=== PATIENT | male | born 1990 | race Caucasian/White ===

== ENCOUNTER 2021-08-30 08:17 | Emergency (ER) | payer OTHER, SELFPAY ==
--- NOTE | 2021-08-30 08:22 | ED.ABDPAIN ---
HPI - Abdominal Pain General Chief Complaint: Nausea/Vomiting/Diarrhea Stated Complaint: Abdominal Pain Time Seen by Provider: 08/30/21 08:53 Source: patient and RN notes reviewed Mode of arrival: ambulatory Limitations: no limitations History of Present Illness HPI narrative: 30-year-old male presents with concern for nausea, vomiting, diarrhea, gas. He reports symptoms started on Monday night with several episodes of vomiting overnight. He reports no vomiting or diarrhea on Monday, however he had nausea and did not feel well. Reports Monday he started having diarrhea and acid reflux. He reports frequent belching. He reports stomach bloating. He denies current abdominal pain. Denies fever, body aches, chills, sweats MD elicited complaint: other (Indigestion, diarrhea) Related Data Home Medications Medication Instructions Recorded Confirmed alprazolam [Xanax] 0.5 mg PO DAILY 08/30/21 08/30/21 Allergies Allergy/AdvReac Type Severity Reaction Status Date / Time No Known Allergies Allergy Verified 08/30/21 08:51 Review of Systems Review of Systems: CONSTITUTIONAL: Denies malaise, chills, sweats, or fever. ENT: Denies rhinorrhea, congestion, sinus pain, otalgia or sore throat. CARDIOVASCULAR: Denies chest pain, palpitations, or edema. RESPIRATORY: Denies cough or dyspnea. GASTROINTESTINAL: Denies abdominal pain, diarrhea. Reports abdominal bloating, gas, belching nausea, diarrhea, bloody, or mucous stools. GENITOURINARY: Denies dysuria or hematuria. MUSCULOSKELETAL: Denies myalgia. NEUROLOGIC: Denies headache. All systems reviewed & are unremarkable except as noted in HPI and below PMFSH Comments At time of signature, agree with nursing past medical, surgical, social and family history. There is no relevant family history pertinent to the presenting complaint Exam Narrative: GENERAL: Well-appearing, well-nourished, and in no acute distress. HEAD: Normocephalic, atraumatic. EYES: PERRLA, conjunctivae clear, and EOMI. ENT: Nares clear, turbinates pink, no rhinorrhea or epistaxis. Mucous membranes moist. Oropharynx without edema, erythema, or lesions. Tonsils not enlarged and without exudate. NECK: Supple. No lymphadenopathy CHEST: Speaks in full sentences. No respiratory distress. HEART: Regular rate and rhythm. ABDOMEN: Soft, flat, nondistended. No guarding, rebound tenderness, or rigid. No pulsatilla masses. Bowel sounds present in all four quadrants. No organomegaly. Negative Ortega?s sign. No periumbilical tenderness. No hernia noted. Appendectomy scar noted SKIN: Warm, dry, no rash. NEURO: Alert and oriented x3. PSYCH: Normal mood and affect Course Course Emergency Course: Patient is aware of diagnosis, understands and agrees to treatment plan. Anticipatory guidance given. Patient agrees to follow-up as directed and is aware of reasons to seek care at the emergency department. Portions of this record may have been created with voice recognition software Level of Care: Express Care Visit Vital Signs Vital signs: Reviewed. MDM - Abdominal Pain MDM Narrative Medical decision making narrative: No evidence of pancreatitis, AAA, cholecystitis, choledocholithiasis, cholangitis, mesenteric ischemia, small bowel obstruction, diverticulitis, colitis, appendicitis, or pelvic etiology such as testicular torsion. Patient has no history of peptic ulcer, H. pylori, chronic aspirin NSAID or corticosteroid use, chronic alcohol use, no history of inflammatory bowel disease, no history of active abdominal infection or malignancy. Patient has no history of hernia or intra-abdominal surgeries, patient denies absence of flatus, constipation, melena, hematemesis. Patient denies post-prandial pain. No pain-out of proportion. Exam findings show no acute concerns or changes; patient is non-toxic appearing and is in no distress. Patient is appropriate for outpatient treatment and follow-up. Differential Diagnosis Differential diag
[2021-08-30 08:44] VITALS: BP 146/80; PULSE 76; RESP 18; TEMP 36.7; O2SAT 98
== END 2021-08-30 09:12 | disposition home or self-care (01) ==
PROVIDERS: Emergency Provider Nurse Practitioner
DX: K30 Functional dyspepsia (principal); R19.7 Diarrhea, unspecified; F41.9 Anxiety disorder, unspecified
CPT/HCPCS: 99213; G0463

== ENCOUNTER 2022-01-07 08:18 | Emergency (ER) | payer OTHER, SELFPAY ==
[2022-01-07 08:29] VITALS: BP 130/78; PULSE 73; RESP 20; TEMP 36.4; O2SAT 100
--- NOTE | 2022-01-07 08:36 | ED.URI ---
HPI - URI/Sore Throat General Chief Complaint: Upper Respiratory Infection Stated Complaint: congestion matted eye Time Seen by Provider: 01/07/22 08:36 Source: patient, RN notes reviewed and old records reviewed Mode of arrival: ambulatory Limitations: no limitations History of Present Illness HPI Narrative: 31 year old male who presents to [facility] care with complaints of left eye matting for the past 2 days with one week history of cough,headache,sore throat,sinus congestion with drainage of green yellowish drainage. Patient reports that he has taken some DayQuil for his symptoms and also some cough drops, has also taken Claritin D a couple of times. Patient reports that his vision is a little foggy from his left eye with some greenish drainage and morning matting.Patient reports that he took a home COVID test which was negative. MD elicited complaint: cough, sore throat, nasal congestion and other (eye drainage left eye) Onset (ago): week(s) Description of mucous: yellow and green Able to tolerate fluids by mouth: Yes Associated symptoms: headache, rhinorrhea, nasal congestion, sore throat, cough and other (eye drainage left eye) Treatments prior to arrival: cold medicine and other (cough drops) Related Data Home Medications Medication Instructions Recorded Confirmed alprazolam 0.5 mg tablet (Xanax) 0.5 mg PO DAILY 08/30/21 01/07/22 Allergies Allergy/AdvReac Type Severity Reaction Status Date / Time No Known Allergies Allergy Verified 01/07/22 08:50 Review of Systems Review of Systems: CONSTITUTIONAL: Denies known fever, chills, or sweats. EYES: Positive for visual changes foggy left eye, some redness, greenish discharge. ENT: Positive rhinorrhea, congestion, sore throat, no otalgia. CARDIOVASCULAR: Denies chest pain, palpitations, or edema. RESPIRATORY: Positive for cough denies dyspnea. GASTROINTESTINAL: Denies abdominal pain, nausea, vomiting, or diarrhea. GENITOURINARY: Denies dysuria or hematuria. SKIN: Denies rash or itching. MUSCULOSKELETAL: Denies back pain, joint pain, or myalgia. NEUROLOGIC: Positive for frontal headache,no numbness, or weakness. PSYCHIATRIC: Positive history of anxiety or depression. All systems reviewed & are unremarkable except as noted in HPI and below PMFSH Past Medical History Medical History (Updated 01/08/22 @ 10:05 by Kati Landeros NP) Anxiety Surgical History Surgical History (Updated 01/07/22 @ 08:47 by Kati Landeros NP) History of appendectomy Social History Social History (Updated 01/07/22 @ 08:47 by Kati Landeros NP) Smoking status: Current every day smoker Tobacco type: cigarettes Alcohol intake: never Substance use type: marijuana Living arrangements: with family Comments At time of signature, agree with nursing past medical, surgical, social and family history. There is no relevant family history pertinent to the presenting complaint Exam Narrative: GENERAL: Well-appearing, well-nourished, and in no acute distress. HEAD: Normocephalic, atraumatic. EYES: PERRLA and EOMI. left eye conjunctiva red with some greenish drainage and morning matting reported ENT: Nares red with yellow rhinorrhea no epistaxis. Mucous membranes moist.TM's normal with dull light reflex, throat red with no exudates or lesions, mild tonsil swelling with post nasal drainage noted. NECK: Supple. No lymphadenopathy CHEST: Clear to auscultation. No respiratory distress.SAO2 100% on room air HEART: Regular rate and rhythm. No murmur heard. Normal peripheral pulses. ABDOMEN: Soft, nontender, nondistended, normal active bowel sounds. EXTREMITIES: Normal range of motion. No edema. SKIN: Warm, dry, no rash. NEURO: No focal deficits. Alert and oriented x3. Course Course Level of Care: Express Care Visit Vital Signs Vital signs: Vital Signs Temperature 36.4 C 01/07/22 08:29 Pulse Rate 73 01/07/22 08:29 Respiratory Rate 20 01/07/22 08:29 Blood Pressu
== END 2022-01-07 09:05 | disposition home or self-care (01) ==
PROVIDERS: Emergency Provider Registered Nurse
DX: H10.32 Unspecified acute conjunctivitis, left eye (principal); J32.9 Chronic sinusitis, unspecified; F17.210 Nicotine dependence, cigarettes, uncomplicated; F41.9 Anxiety disorder, unspecified
CPT/HCPCS: 99213; G0463

== ENCOUNTER 2023-06-22 08:01 | Emergency (ER) | payer OTHER, SELFPAY ==
[2023-06-22 08:10] VITALS: BP 148/74; PULSE 82; RESP 18; TEMP 36.3; O2SAT 100
--- NOTE | 2023-06-22 08:11 | ED.URI ---
HPI - URI/Sore Throat General Chief Complaint: Upper Respiratory Infection Stated Complaint: Sinus Problem Time Seen by Provider: 06/22/23 08:15 Source: patient, RN notes reviewed and old records reviewed Mode of arrival: ambulatory Limitations: no limitations History of Present Illness HPI Narrative: 32-year-old male who presents to [facility] with complaints of sinus congestion drainage, sinus pain and intermittent headaches for the past 3 months. Patient reports symptoms started around April 07 he has been taking [id number] Claritin D using Mucinex nasal spray taking ibuprofen with no resolution of symptoms. Patient states symptoms seem to get better then became worse again. Patient denies any known fever chills or body aches denies any shortness of breath or any wheezing. Patient states he does have cough at times especially in the early a.m. patient reports he did take all COVID test 2 weeks ago that was negative. MD elicited complaint: cough, rhinorrhea, nasal congestion and sinus pain Onset (ago): month(s) (3) Description of mucous: yellow Able to tolerate fluids by mouth: Yes Treatments prior to arrival: other (Mucinex nasal spray, Claritin D, Ibuprofen) Related Data Allergies Allergy/AdvReac Type Severity Reaction Status Date / Time No Known Allergies Allergy Verified 06/22/23 08:10 Review of Systems Review of Systems: CONSTITUTIONAL: Denies malaise, chills, sweats, or fever. EYES: Denies visual changes, redness, or discharge. ENT: Reports rhinorrhea, congestion, sinus pain, no otalgia and no sore throat. CARDIOVASCULAR: Denies chest pain, palpitations, or edema. RESPIRATORY: Reports cough.? Denies dyspnea. GASTROINTESTINAL: Denies abdominal pain, nausea, vomiting, diarrhea SKIN: Denies rash or itching. MUSCULOSKELETAL: Denies myalgia. NEUROLOGIC: Reports headache. All systems reviewed & are unremarkable except as noted in HPI and below PMFSH Past Medical History Medical History Anxiety Surgical History Surgical History (Updated 01/07/22 @ 08:47 by Kati Ladneros NP) History of appendectomy Social History Social History (Updated 06/22/23 @ 08:30 by Kati Landeros NP) Smoking status: Never smoker Alcohol intake: never Substance use type: does not use Living arrangements: with family Comments At time of signature, agree with nursing past medical, surgical, social and family history. There is no relevant family history pertinent to the presenting complaint Exam Narrative: GENERAL: Well-appearing, well-nourished, and in no acute distress. HEAD: Normocephalic EYES: PERRLA, conjunctivae clear ENT: Nares clear, turbinates edematous and erythematous, yellow discharge, sinus pressure and pain. Mucous membranes moist. TM pearly roy with dull light reflex bilaterally; no tragal tenderness. Oropharynx erythematous without lesions. Tonsils not enlarged and without exudate, no drooling, no hoarseness, no trismus, uvula midline. Postnasal drainage NECK: Supple. No lymphadenopathy CHEST: Clear to auscultation, breath sounds equal. No wheezing, rhonchi, rales, or stridor. No respiratory distress, speaks in full sentences. No cough noted SaO2 100% room air HEART: Regular rate and rhythm. No murmur heard. SKIN: Warm, dry, no rash. NEURO: Alert and oriented x3. PSYCH: Normal mood and affect Course Course Emergency Course: Patient is aware of diagnosis, understands and agrees to treatment plan.? Anticipatory guidance given.? Patient agrees to follow-up as directed and is aware of reasons to seek care at the emergency department. Portions of this record may have been created with voice recognition software Level of Care: Express Care Visit Vital Signs Vital signs: Vital Signs Temperature 36.3 C L 06/22/23 08:10 Pulse Rate 82 06/22/23 08:10 Respiratory Rate 18 06/22/23 08:10
[2023-06-22 08:13] VITALS: BP 148/74; PULSE 82; RESP 18; TEMP 36.3; O2SAT 100
== END 2023-06-22 08:33 | disposition home or self-care (01) ==
PROVIDERS: Emergency Provider Registered Nurse
DX: J32.9 Chronic sinusitis, unspecified (principal); B96.89 Other specified bacterial agents as the cause of diseases classified elsewhere; F41.9 Anxiety disorder, unspecified
CPT/HCPCS: 99213; G0463

== ENCOUNTER 2024-06-19 08:46 | Emergency (ER) | payer OTHER, SELFPAY ==
[2024-06-19 08:53] VITALS: BP 136/71; PULSE 93; RESP 16; TEMP 36.6; O2SAT 100
--- NOTE | 2024-06-19 09:39 | ED.GENADULT ---
HPI - General Adult General Chief complaint: Upper Respiratory Infection Stated complaint: Sinus Pain Source: patient Mode of arrival: ambulatory Limitations: no limitations History of Present Illness HPI narrative: Pt presents for evaluation of sinus symptoms for the past four days. Symptoms include sinus congestion, thick green drainage from the nares, chills, a mild cough and dental pain. He has had similar symptoms in the past with a sinus infection. In the past, antibiotics were effective. No fever, sore throat, otalgia or SOB. His recently had respiratory symptoms. He does not smoke. He has tried nasal spray for his symptoms. Related Data Allergies Allergy/AdvReac Type Severity Reaction Status Date / Time No Known Allergies Allergy Verified 06/19/24 09:18 Review of Systems Review of Systems: CONSTITUTIONAL: Reports chills. Denies fever EYES: Denies visual changes, redness, or discharge. ENT: Reports sinus congestion, thick green drainage from the nares and dental pain. Denies sore throat or otalgia CARDIOVASCULAR: Denies chest pain, palpitations, or edema. RESPIRATORY: Reports cough. Denies SOB GASTROINTESTINAL: Denies abdominal pain, nausea, vomiting, or diarrhea. GENITOURINARY: Denies dysuria or hematuria. SKIN: Denies rash or itching. MUSCULOSKELETAL: Denies back pain, joint pain, or myalgia. NEUROLOGIC: Denies headache, numbness, dizziness, or weakness. PSYCHIATRIC: Denies anxiety or depression. PMFSH Past Medical History Medical History Anxiety Surgical History Surgical History History of appendectomy Family History Family History Mother Family history non-contributory Social History Social History (System 04/11/24 @ 09:11 by Yeimi Vera) Smoking status: Never smoker Second hand tobacco smoke exposure: Yes Alcohol intake: never Substance use type: does not use Living arrangements: with family Exam Narrative: GENERAL: Well-appearing, well-nourished, and in no acute distress. HEAD: Normocephalic, atraumatic. EYES: PERRLA and EOMI. ENT:There is thick yellow-green drainage in the nares. There is bilaterally maxillary sinus tenderness. Mucous membranes moist. Oropharynx without tonsillar hypertrophy exudate or other lesions. Bilateral TMs pearly roy nonbulging NECK: Supple. No adenopathy or masses. No carotid bruits or JVD CHEST: Clear to auscultation. No respiratory distress. No wheezes rales or rhonchi HEART: Regular rate and rhythm. No murmur heard. Normal peripheral pulses. ABDOMEN: Soft, nontender, nondistended, normal active bowel sounds. EXTREMITIES: Normal range of motion. No edema. SKIN: Warm, dry, no rash. NEURO: No focal deficits. Alert and oriented x3. PSYCH: Normal mood and affect. Course Course Emergency Course: This is a 33 yr old male who presented for evaluation of sinus symptoms. He meets criteria for bacterial sinusitis based upon presence of mucopurulent discharge. Will dc with augmentin. Increase fluids. Follow up with primary provider. Go to the ER for worsening symptoms. Pt in agreement with plan of care. Level of Care: Express Care Visit Vital Signs Vital signs: Vital Signs Temperature 36.6 C 06/19/24 08:53 Pulse Rate 93 06/19/24 08:53 Respiratory Rate 16 06/19/24 08:53 Blood Pressure 136/71 06/19/24 08:53 Pulse Oximetry 100 06/19/24 08:53 Oxygen Delivery Room Air 06/19/24 08:53 Temperature 36.6 C 06/19/24 08:53 Pulse Rate 93 06/19/24 08:53 Respiratory Rate 16 06/19/24 08:53 Blood Pressure 136/71 06/19/24 08:53 Pulse Oximetry 100 06/19/24 08:53 Oxygen Delivery Room Air 06/19/24 08:53 Medical Decision Making Vital Signs Vital Signs: Vital Signs Temperature 36.6 C 06/19/24 08:53 Pulse Rate 93 06/19/24 08:53 Respiratory Rate 16 06/19/24 08:53 Blood Pressure 136/71 06/19/24 08:53 Pulse Oximetry 100 06/19/24 08:53 Oxygen Delivery Room Air 06/19/24 08:53 Temperature 36.6 C 06/19/24 08:53 Pulse Rate 93 06/19/24 08:53 Respiratory Rate 16 06/19/24 08:53 Blood Pressure 136/71 06/19/24 08:53 Pulse Oximetry 100 06/19/24 08:53 Oxygen Delivery Room Air 06/19/24 08:53 Discharge Plan Discharge Clinical Impression: Acute bacterial sinusitis Patient Disposition: Home, Self-Care Condition: Stable Instructions: Antibiotic Form, Sinusitis (ED) Patient Language: Greenlandic Prescriptions: New amoxicillin-pot clavulanate 875-125 mg tablet 1 tablet PO Q12H Qty: 20 0RF Follow-up/Referrals: Corinne Gomez DO [Physician] - Time of Disposition: 09:36
--- OUTSIDE RECORDS SUMMARY | 2024-06-20 22:03 | XMS_ITS | Continuity of Care Document ---
Author Organization [facility] Address [address] [place] [address] Phone Care Team Providers Care Competency Evaluated Nurse Aide Name Role Phone Isreal Alvarado MD Unavailable Unavailable Allergies, Adverse Reactions, Alerts Substance Reaction Status Criticality No Known Drug Allergies Active No I nformation Medications Medication Instructions Dosage Effective Dates (start - stop) Status Comments amoxicillin 500 mg capsule take 1 capsule by oral route 3 times every day for 10 days - Active clindamycin HCl 150 mg capsule take 1 capsule by oral route every 8 hours 150 MG - No Longer Active CYCLOBENZAPR 10MG TAB TAKE ONE TABLET BY MOUTH ONCE DAILY AT BEDTIME 10 MG - No Longer Active Advance Directives Directive Yes / No Effective Date File Name No Information Encounters Encounter Description Practice Location Reason(s) For Visit Diagnoses Date Provider Providers Copied on Encounter [facility], [address], [place], [place], [address], tel:[phone] [facility] No Information 9 Christiano Bach. [address] [place] [address], [address], [place], [place], [id number] , [place]. tel: [phone] [facility], [address], [place], [place], [address], tel:[phone] [facility] No Information 8 Christiano Bach. [address] [place] [address], [address], [place], [place], [address] , . tel: [phone] [facility], [address], [place], [place], [address], tel:[phone] [facility] No Information Christiano Bach. [address] [place] [address], [address], [place], [place], [address] , . tel: [phone] [facility], [address], [place], [place], [address], tel:[phone] [facility] Neck pain 7 Christiano Bach. [address] [place] [address], [address], [place], [place], [address] , . tel: [phone] Referring Provider: Isreal Alvaraod, [address] [place] [address] [address], [place], [address] . tel:[phone] [facility], [address], [place], [place], [address], tel:[phone] [facility] AnxietyTrapezius muscle strain, unspecified laterality, subsequent encounter 6 Zachary Hu. [address] [place] [address], [address], [place], [place], [address] . tel: [phone] Referring Provider: Isreal Alvarado, [address] [place] [address] [address], [place], [address] . tel:[phone] [facility], [address], [place], [place], [address], tel:[phone] [facility] Routine general medical examination at a health care facilityRoutine general medical examination at a health care facility 1 Christiano Bach. [address] [place] [address], [address], [place], [place], [address] , . tel:[phone] Referring Provider: Isreal Alvarado [address] [place] [address] [address], [place], [address] . tel:[phone] Family History Family Member Type Diagnosis Age At Onset Problem (finding) Family history of depre ssion Problem (finding) Family history of Diabe surya mellitus Payers Payer name Insurance type Covered green party ID Kalyn SHAHID (s) OPEN ACCESS CI [id number] Social History Type Description Quantity Date Captured Comments Alcohol Use Details Unknown Caffeine Use Details Unknown Tobacco Use Status No Information Smoking Status No Information Sex Male Chief Complaint And Reason For Visit No Information Reason For Referral Reason For Referral No Information History Of Present Illness Encounter Date Complaint History Of Prese nt Illness No Information Functional Status Date Functional Assessmen t No Information Instructions Date Instruction Additional Infor mation No Information Assessments Type Assessment Date No Information Patient Care Teams Name Effective Dates (start - stop) Status Members No Information
--- OUTSIDE RECORDS SUMMARY | 2024-06-20 22:03 | XMS_ITS | Continuity of Care Document ---
Author Organization [facility] Address [address] [place] [address] [address] [place] [address] Phone Care Team Providers Care Histopathology Technician Name Role Phone Amando HERNANDEZ MD, Kamron Unavailable Unavailab le Medications Medication Instructions Dosage Effective Dates (start - stop) Status Comments HYDROCODONE-ACETA MINOPHEN (unknown strength) take 1 capsule by oral route every 6 hours as needed Not Available - Active FLEXERIL (unknown strength) take 1 tablet by oral route 3 times every day Not Available - Active Polytrim 0.1 %-10,000 unit/mL Eye Drops instill 1 drop by ophthalmic route every 6 hours into affected eye(s) - No Longer Active Procedures Procedure Date No Charge Glasses Check Office/outpatient Visit, Est No Charge Glasses Check Office/outpatient Visit, Est Office/outpatient Visit, New Advance Directives Directive Yes / No Effective Date File Name Resuscitation Not Answered N/A N/A Life Support Not Answered N/A N/A Intubation Not Answered N/A N/A Antibiotics Not Answered N/A N/A IV Fluid Support Not Answered N/A N/A Tube Feed Not Answered N/A N/A Other Directive N/A N/A WARNING:The information contained in this section is historical and is provided for information only and does not constitute a legal document or any assurance that the information is still accurate. Please verify the information with the flores of the legal document before using it for clinical purposes. Encounters Encounter Description Practice Location Reason(s) For Visit Diagnoses Date Provider Providers Copied on Encounter [facility], [address] [place] [address] [address], [place], [place], [id number], [place] tel:[phone] SEC Jamison JAMES Professional 1 month f/u Corneal Ulcer (chief complaint) CENTRAL CORNEAL ULCER Nov- 5-201 3 Amando Lundy. [address], [address], [place], [address], [place]. tel:[phone] Office/outpa tient Visit, [facility] [place], [place], [id number] [place] [address] [address], [place], [place], [id number], [place] tel:[phone] SEC Jamison JAMES Professional a comprehensive exam (chief complaint) CENTRAL CORNEAL ULCERCENTRAL CORNEAL ULCER Oct-1 8-201 3 Amando Lundy. [address], [address], [place], [address], [place]. tel:[phone] [facility], [address] [place] [address] [address], [place], [place], [id number], [place] [phone] SEC Jamison JAMES Professional f/up on corneal ulcer (chief complaint) PSYCHOPHYSIC VISUAL DISTCENTRAL CORNEAL ULCER Oct-1 0-201 3 [facility] [address] [facility], [facility] [place], [id number], [place]. tel:[phone] Office/outpa tient Visit, [facility] [place], [place], [address] [place] [address] [address], [place], [place], [id number], [place] tel:[phone] SEC Jamison JAMES Professional a comprehensive exam (chief complaint) CENTRAL CORNEAL ULCER Oct-0 7-201 3 [facility] [address], [address], [place], [place], [id number], [place]. tel:[phone] Office/outpa tient Visit, [facility], [address] [place] [address] [address], [place], [place], [id number], [place] tel:[phone] SEC Jamison JAMES Professional WIE (chief complaint) PAIN IN OR AROUND EYEREDNESS/D ISCHARGE OF EYEPSYCHOPHY SIC VISUAL DIST Oct-0 4-201 3 Amando Lundy. [address], [address], [place], [address], [place]. tel:[phone] Family History Family Member Type Diagnosis Age At Onset No Information Payers Payer name Insurance type Covered green party ID Kalyn FIGUEROA (s) [id number] Social History Type Description Quantity Date Captured Comments Alcohol Use Details 1 beer rarely Caffeine Use Details 5 cups per day Tobacco Use Status No Information Smoking Status Former smoker Sex Male Chief Complaint And Reason For Visit From encounter dated '04/12/2013 08:45'. 1 month f/u Corneal Ulcer (chief complaint) Reason For Referral Reason For Referral No Information History Of Present Illness Encounter Date Complaint History Of Prese nt Illness No Information Functional Status Date Functional Assessmen t No Information Instructions Date Instruction Additional Infor mation CENTRAL CORNEAL ULCE R - Discussed diagnosis in detail with patient. No treatment is required at this time. Educational materials provided:about today's exam. Advised pt that he can now wear contacts. RTC as needed. Related to CENTRAL CORNEAL ULCER - RTC as needed Related to CENTR AL CORNEAL ULCER CENTRAL CORNEAL ULCE R - taper drops, rtc in few weeks. Will need to get new contacts for OS only as the scar has caused central flattening improving his myopia. Now 20/30, SC. Related to CENTRAL CORNEAL ULCER - 6-7days Related to CENTR AL CORNEAL ULCER healing central corn eal ulcer od - besivance and poly tid Related to CENTRAL CORNEAL ULCER - 3-4days Related to CENTR AL CORNEAL ULCER central ulcer od wit hout stain but still surrounding stromal edema - besivance and polytrim qid Related to CENTRAL CORNEAL ULCER Assessments Type Assessment Date No Information Patient Care Teams Name Effective Dates (start - stop) Status Members No Information
== END 2024-06-19 09:40 | disposition home or self-care (01) ==
PROVIDERS: Emergency Provider Nurse Practitioner
DX: J01.90 Acute sinusitis, unspecified (principal)
CPT/HCPCS: 99213; G0463